=== PATIENT | male | born 1960 | race Two or more races ===

== ENCOUNTER → 2016-11-20 | Outpatient (CLI) | payer OTHER | END | disposition home or self-care (01) | LOC: RAD 16:39 | DX: M47.896 Other spondylosis, lumbar region (principal); M54.2 Cervicalgia; M54.5 Low back pain | CPT/HCPCS: 72100 ==

== ENCOUNTER 2017-02-09 13:45 | Emergency (ER) | payer OTHER ==
[~2017-02-09] VITALS: Ht 175.3 cm; Wt 84.5 kg
[2017-02-09 17:11] LABS: HEMATOCRIT 41.6 % (38.0-50.0); MCH 30.5 PG (29.0-34.0); MCHC 34.1 G/DL (30.0-36.0); MCV 89.3 FL (86-99); MEAN PLAT.VOLUME 11.5 uM^3 (9.0-12.4); PLATELET COUNT 146 K/uL (156-360); RBC DIS.WIDTH-CV 11.5 % (11.8-14.6); RBC DIS.WIDTH-SD 36.9 % (39-53); RED BLOOD COUNT 4.66 M/uL (4.00-5.50); WHITE BLOOD COUNT 12.3 K/uL (4.1-10.2)
[2017-02-09 17:24] LABS: CHLORIDE 102 mEq/L (99-109); POTASSIUM 4.5 mEq/L (3.7-5.4); SODIUM 135 mEq/L (136-147)
[2017-02-09 17:26] LABS: GLUCOSE 127 mg/dL (70-99)
[2017-02-09 17:28] LABS: ANION GAP 9 MEQ/L (2-14)
[2017-02-09 17:30] LABS: GFR ESTIMATE (CALCULATED) > 59 mL/min/
[2017-02-09 17:31] LABS: UREA NITROGEN (BUN) 15 mg/dL (9-23)
[2017-02-09 17:36] LABS: TROP-I INTERPRETATION NEGATIVE; TROPONIN-I < 0.01 ng/mL (0.0-0.30)
[2017-02-09] MEDS ORDERED: ZITHROMAX TRI-500 MG PO (18:50)
[2017-02-09] MEDS ORDERED: CHERATUSSIN AC473 ML PO (18:51)
[2017-02-09] MEDS ORDERED: MOTRIN600 MG PO (18:58)
[2017-02-09 19:19] VITALS: BP 118/61
== END 2017-02-09 19:20 | disposition home or self-care (01) ==
LOC: EME 13:45
PROVIDERS: Physician Assistant
DX: J18.9 Pneumonia, unspecified organism (principal); R51 Headache; J02.9 Acute pharyngitis, unspecified; G89.29 Other chronic pain; M54.2 Cervicalgia; I10 Essential (primary) hypertension; E78.5 Hyperlipidemia, unspecified
CPT/HCPCS: 71020; 80048; 84484; 85027; 93005; 99281; 99285